=== PATIENT | female | born 1950 | race Caucasian/White ===

== ENCOUNTER 2024-06-12 16:56 | Emergency (ER) | payer MEDICARE, OTHER ==
[2024-06-12 18:09] LABS: Influenza A by NAA Not Detected (NotDetected); Influenza B by NAA Not Detected (NotDetected); SARS-CoV-2 NAA Rapid Test Not Detected (NotDetected)
[2024-06-12] MEDS ORDERED: predniSONE 20 MG TAB ONE ×2 (18:09→18:12)
[2024-06-12] MEDS ORDERED: Azithromycin 250 MG TAB ONE (18:09)
== END 2024-06-12 18:22 | disposition home or self-care (01) ==
LOC: CSHERS 16:56
DX: R05.9 Cough, unspecified (principal); Z55.0 Illiteracy and low-level literacy; I10 Essential (primary) hypertension
CPT/HCPCS: 0240U; 71046; J7512